=== PATIENT | female | born 1975 | race Caucasian/White ===

== ENCOUNTER 2019-04-09 13:51 | Day surgery (SDC) | payer SELFPAY ==
[~2019-04-09] VITALS: Ht 152.4 cm; Wt 69.2 kg
[2019-04-09 14:11] VITALS: BP 126/71; PULSE 72; TEMP 98.1
[2019-04-09] MEDS ORDERED: PRILOSEC 20MG20 MG PO (14:16)
[2019-04-09] MEDS ORDERED: PRINIVIL10 MG PO (14:17)
[2019-04-09] MEDS ORDERED: AMBIEN 10MG10 MG PO (14:18)
[2019-04-09] MEDS ORDERED: AMITRIPTYLINE H10 M1 PO (14:18)
[2019-04-09] MEDS ORDERED: VAGIFEM10 MCG VG (14:18)
[2019-04-09] MEDS ORDERED: DESYREL 100MG100 MG PO (14:18)
[2019-04-09] MEDS ORDERED: NORCO 325 MG-51 TAB PO (14:19)
[2019-04-09 15:40] VITALS: BP 107/84; PULSE 96; TEMP 97.6
--- NOTE | 2019-04-09 15:40 | NUR ---
Pt returns from endo procedure via cart. Pt ambulates from cart to recliner with RN assist x 2. Monitors on and alarms set. Call light within reach. Pt requesting water. Pt is drowsy but answers all questions appropriately. Pt has no complaints of pain or nausea. No family present. Report received from JUSTIN Adame.
--- NOTE | 2019-04-09 15:52 | NUR ---
Pt reports nausea. Medicine requested.
[2019-04-09 16:00] VITALS: BP 110/69; PULSE 79
--- NOTE | 2019-04-09 16:04 | NUR ---
Zofran 4 mg IV slow push given.
--- NOTE | 2019-04-09 16:07 | NUR ---
Pt states that nausea is resolved. Pt more alert now. No complications voiced except that she wants to go home.
[2019-04-09 16:15] VITALS: BP 118/73; PULSE 73
--- NOTE | 2019-04-09 16:30 | NUR ---
Discharge instructions given to patient and friend. All questions answered to their satisfaction. Handed to them are a thank you card, discharge instructions, diagnosis information, and a discharge med sheet.
--- NOTE | 2019-04-09 16:35 | NUR ---
Pt transferred out of hospital via wheelchair and this RN to waiting private vehicle driven by friend.
== END 2019-04-09 16:35 | disposition home or self-care (01) ==
LOC: SDCO 13:51
DX: K62.1 Rectal polyp (principal); K92.1 Melena; R11.2 Nausea with vomiting, unspecified; R13.12 Dysphagia, oropharyngeal phase; F17.210 Nicotine dependence, cigarettes, uncomplicated; K58.0 Irritable bowel syndrome with diarrhea; Z88.8 Allergy status to other drugs, medicaments and biological substances; Z88.6 Allergy status to analgesic agent; Z88.5 Allergy status to narcotic agent; Z87.11 Personal history of peptic ulcer disease; Z79.52 Long term (current) use of systemic steroids; Z80.0 Family history of malignant neoplasm of digestive organs; Z90.710 Acquired absence of both cervix and uterus
CPT/HCPCS: J2250; J2405; J3010; J7030

== ENCOUNTER → 2023-06-16 | Outpatient (CLI) | payer OTHER ==
[~2023-06-16] MED LIST: AMBIEN 10MG10 MG PO; AMITRIPTYLINE H10 M1 PO; Albuterol 0.083% Neb Soln 2.5 MG/3 ML UD IH ONE; DESYREL 100MG100 MG PO; Methacholine Vial A (Clear Label Base-Cntrl) IH ONE; Methacholine Vial B (Red Label) 0.0625 MG/ML 3 ML VIAL.NEB IH ONE; Methacholine Vial C (Orange Label) 0.25 MG/ML 3 ML VIAL.NEB IH ONE; Methacholine Vial D (Yellow Label) 1 MG/ML 3 ML VIAL.NEB IH ONE; Methacholine Vial E (Green Label) 4 MG/ML 3 ML VIAL.NEB IH ONE; Methacholine Vial F (Blue Label) 16 MG/ML 3 ML VIAL.NEB IH ONE; NORCO 325 MG-51 TAB PO; PRILOSEC 20MG20 MG PO; PRINIVIL10 MG PO; VAGIFEM10 MCG VG
== END ==
LOC: COL.CARD 08:49 → EDSEX 10:30
DX: R06.02 Shortness of breath (principal); F17.210 Nicotine dependence, cigarettes, uncomplicated
CPT/HCPCS: J7674